=== PATIENT | male | born 1960 | race Caucasian/White ===

== ENCOUNTER 2018-03-30 12:59 | Emergency (ER) | payer OTHER ==
[2018-03-30 13:09] VITALS: RESP 20; TEMP 98.5; O2SAT 98
--- NOTE | 2018-03-30 13:35 | RAD ---
Date of service: 03/30/2018 HISTORY: cough COMPARISON: No prior. TECHNIQUE: Chest PA and lateral FINDINGS: LUNGS: Linear opacity mid right lung laterally. Possible scar or atelectasis. Possible thickening of minor fissure. No infiltrate. PLEURA: No significant pleural effusion identified. No pneumothorax apparent. CARDIOVASCULAR: No aortic atherosclerotic calcification present. Normal cardiac size. No pulmonary vascular congestion. OSSEOUS STRUCTURES: No significant abnormalities. VISUALIZED UPPER ABDOMEN: Normal. OTHER FINDINGS: None. IMPRESSION: No acute infiltrate.
[2018-03-30] MEDS ORDERED: Albuterol-Ipratrop 3 mg / 0.5 (3 ml) UD INH STA (13:37)
[2018-03-30] MEDS ORDERED: Albuterol 0.083% Inhal Sol (2.5 mg/3 mL) UD INH STA (14:07)
--- NOTE | 2018-03-30 14:22 | ED PDOC ---
HPI: Influenza Time Seen by Provider: 03/30/18 13:08 Chief Complaint: Cough, Cold, Congestion Chief Complaint (Provider): Cough History Per: Patient Exam Limitations: no limitations Onset/Duration Of Symptoms: Worse Since Symptoms include: cough Additional complaint(s):: 57 year old male presents to the ED for an evaluation of cough since Monday which has worsened. Patient states since last night, the cough has become productive with yellow sputum. He reports, he has developed chest tightness today with no chest pain. He took Mucinex and Nyquil without any relief. His coworkers are also diagnosed with the flu at work. Otherwise, patient denies fever, abdominal pain, nausea, vomiting recent travels or hemoptysis. Past Medical History Reviewed: Historical Data, Nursing Documentation, Vital Signs Vital Signs: Last Vital Signs Temp 98.5 F 03/30/18 13:06 Pulse 100 H 03/30/18 13:06 Resp 20 03/30/18 13:44 BP 174/103 H 03/30/18 13:06 Pulse Ox 98 03/30/18 13:06 - Medical History PMH: No Chronic Diseases - Family History Family History: States: Unknown Family Hx - Social History Current smoker - smoking cessation education provided: Yes (Light Smoker < 10 Cigarettes Daily) Alcohol: Social Drugs: Denies - Immunization History Hx Tetanus Toxoid Vaccination: No - Home Medications Home Medications: Ambulatory Orders Medication Instructions Recorded Albuterol 0.083% [Albuterol 3 ml IH Q4 PRN #50 neb 03/30/18 Sulfate 3 Ml] Albuterol HFA [Ventolin HFA 90 2 puff IH [id number] PRN #120 puff 03/30/18 mcg/actuation (8 g)] Azithromycin [Zithromax] 250 mg PO DAILY #6 tab 03/30/18 RX: Nebulizer [Aeroeclipse II] 1 each NEB Q4 PRN #1 each 03/30/18 RX: Promethazine DM [Phenergan DM 5 - 10 ml PO Q8 PRN #120 ml 03/30/18 Syrup] - Allergies Allergies/Adverse Reactions: Allergies Allergy/AdvReac Type Severity Reaction Status Date / Time No Known Allergies Allergy Verified 03/30/18 13:06 Review of Systems ROS Statement: Except As Marked, All Systems Reviewed And Found Negative Constitutional: Negative for: Fever Cardiovascular: Positive for: Other (chest tightness ). Negative for: Chest Pain Respiratory: Positive for: Cough, Sputum (yellow) Gastrointestinal: Negative for: Nausea, Vomiting, Abdominal Pain, Diarrhea, Other (hemoptysis) Physical Exam - Reviewed Nursing Documentation Reviewed: Yes Vital Signs Reviewed: Yes - Physical Exam Appears: Positive for: Well, Non-toxic, No Acute Distress Head Exam: Positive for: ATRAUMATIC, NORMAL INSPECTION, NORMOCEPHALIC Skin: Positive for: Normal Color, Warm, Dry. Negative for: Rash Eye Exam: Positive for: EOMI, Normal appearance, PERRL ENT: Positive for: Normal ENT Inspection Neck: Positive for: Normal, Painless ROM, Supple. Negative for: Decreased ROM Cardiovascular/Chest: Positive for: Regular Rate, Rhythm. Negative for: Murmur Respiratory: Positive for: Wheezing (minimal bilateral expository wheezing). Negative for: Decreased Breath Sounds Gastrointestinal/Abdominal: Positive for: Normal Exam, Bowel Sounds, Soft. Negative for: Tenderness Extremity: Positive for: Normal ROM. Negative for: Tenderness, Pedal Edema, Deformity Neurologic/Psych: Positive for: Alert, Oriented (x3), Other (speaking full sentences). Negative for: Motor/Sensory Deficits Medical Decision Making Medical Decision Making: Time: 1320 Initial Plan: EKG CXR Albuterol 2.5mg Albuterol 3ml Peak Flow Pre/Post TX Influenza A B Reevaluation Time: 1331 HISTORY: cough COMPARISON: No prior. TECHNIQUE: Chest PA and lateral FINDINGS: LUNGS: Linear opacity mid right lung laterally. Possible scar or atelectasis. Possible thickening of minor fissure. No infiltrate. PLEURA: No significant pleural effusion identified. No pneumothorax apparent. CARDIOVASCULAR: No aortic atherosclerotic calcification present. Normal cardiac size. No pulmonary vascular congestion. OSSEOUS STRUCTURES: No significant abnormalities. VISUALIZED UPPER ABDOMEN: Normal. OTHER FINDINGS: None. IMPRESSION: No acute infiltrate. Scribe Attestation: Documented by Ashish Pablo, acting as a scribe for Samson Lawrence PA-C Provider Scribe Attestation: All medical record entries made by the Scribe were at my direction and personally dictated by me. I have reviewed the chart and agree that the record accurately reflects my personal performance of the history, physical exam, medical decision making, and the department course for this patient. I have also personally directed, reviewed, and agree with the discharge instructions and disposition. - ECG ECG: Positive for: Interpreted By Me ECG Rhythm: Positive for: Sinus Rhythm. Negative for: ST/T Changes Rate: 91 (Done after initial HR) O2 Sat by Pulse Oximetry: 98 (RA) Pulse Ox Interpretation: Normal - Radiology X-Ray: Interpreted by Me (atelectasis but no infiltrate) - Progress ED Course And Treament: Repeat BP: 102/66 (as per Rosa KANG). Re-evaluation Time: 14:15 (Reports complete relief of wheezing and dyspnea. States he is feeling much better. Advised to f/u with PMD for further evaluation but is to return to ED immediately if symptoms worsen.) Condition: Re-examined, Improved Disposition - Clinical Impression Clinical Impression: Asthmatic bronchitis - Patient ED Disposition Is Patient to be Admitted: No - Disposition Referrals: Yaron Dozier MD [Staff Provider] - [facility] [Outside] Disposition: Routine/Home Disposition Time: 14:19 Condition: IMPROVED Additional Instructions: FOLLOW UP WITH YOUR DOCTOR FOR FURTHER EVALUATION RETURN TO ED IMMEDIATELY IF SYMPTOMS WORSEN DAPHNIE DEMARCO, thank you for letting us take care of you today. Your provider was Linda Skinner MD and you were treated for FLU LIKE SYMPTOMS. The emergency medical care you received today was directed at your acute symptoms. If you were prescribed any medication, please fill it and take as directed. It may take several days for your symptoms to resolve. Return to the Emergency Department if your symptoms worsen, do not improve, or if you have any other problems. Please contact your doctor or call one of the physicians/clinics you have been referred to that are listed on the Patient Visit Information form that is included in your discharge packet. Bring any paperwork you were given at discharge with you along with any medications you are taking to your follow up visit. Our treatment cannot replace ongoing medical care by a primary care provider outside of the emergency department. Thank you for allowing the [facility] team to be part of your care today. If you had an X-Ray or CT scan: A Radiologist will review the ED reading if any change in treatment is needed we will contact you. If you had a blood, urine, or wound culture: It will take several days for the results, if any change in treatment is needed we will contact you. If you had an STI test: It will take 48 hours for the results. Please call after 1 week if you have not heard back. Prescriptions: Albuterol HFA [Ventolin HFA 90 mcg/actuation (8 g)] 2 puff IH [id number] PRN #120 puff PRN Reason: Cough Albuterol 0.083% [Albuterol Sulfate 3 Ml] 3 ml IH Q4 PRN #50 neb PRN Reason: Wheezing Azithromycin [Zithromax] 250 mg PO DAILY #6 tab RX: Nebulizer [Aeroeclipse II] 1 each NEB Q4 PRN #1 each PRN Reason: Wheezing RX: Promethazine DM [Phenergan DM Syrup] 5 - 10 ml PO Q8 PRN #120 ml PRN Reason: Cough Instructions: How to Use Your Metered Dose Inhaler (Adults) Forms: [employer] (Korean), [facility] School/Work Excuse Print Language: FRENCH
[2018-03-30 15:00] VITALS: BP 102/66
[2018-03-30 15:02] VITALS: PULSE 91
--- NOTE | 2018-03-30 16:14 | CARD ---
APPROVED REPORT Date of service: 03/30/2018 EKG Measurement Heart [id number] <Conclusion> Normal sinus rhythm Voltage criteria for left ventricular hypertrophy Inferior infarct, age undetermined Abnormal ECG
== END 2018-03-30 15:00 | disposition home or self-care (01) ==
LOC: H.ER 12:59
DX: J45.909 Unspecified asthma, uncomplicated (principal); F17.210 Nicotine dependence, cigarettes, uncomplicated; Z79.899 Other long term (current) drug therapy